=== PATIENT | female | born 2000 | race Caucasian/White ===

== ENCOUNTER 2021-02-24 21:17 | Emergency (ER) | payer OTHER, MEDICAID, SELFPAY ==
--- NOTE | ~2021-02-24 | CT_ITS ---
EXAMINATION: CT HEAD WITHOUT CONTRAST CLINICAL INFORMATION: Head injury at work. No loss of consciousness. COMPARISON: CT head dated from 03/23/2017. TECHNIQUE: Contiguous axial imaging was performed from the skull base to vertex without intravenous administration of contrast. This CT examination was performed using dose optimization techniques as appropriate, variously including the following: *Automated exposure control *Adjustment of mA and/or kV according to patient size (this includes techniques or standardized protocols for targeted exams where dose is matched to indication/reason for exam; i.e. extremities or head) *Use of iterative reconstruction technique DLP: 656 mGy-cm FINDINGS: There is no evidence of acute intracranial hemorrhage or edematous territorial infarction. There is no abnormal attenuation within the brain parenchyma. [place]-white matter differentiation is preserved. The ventricles are normal in size and configuration. No evidence for obstructive hydrocephalus. No abnormal mass effect or midline shift. No extra-axial fluid collections. Subtle soft tissue thickening in the right frontal skull, possibly the site of injury. No acute osseous abnormalities. Mild mucosal thickening of the paranasal sinuses. The mastoids are clear. CT/CT head/brain wo con IMPRESSION: No evidence of acute intracranial hemorrhage or edematous territorial infarction.
[2021-02-24 21:57] VITALS: BP 145/96; PULSE 77; RESP 16; TEMP 36.8; O2SAT 98; BMI 32.9
--- NOTE | 2021-02-24 22:38 | ED.HEATRA ---
HPI - Head Injury General Chief complaint: Head Injury Stated complaint: work inj Time Seen by Provider: 02/24/21 22:20 Source: patient Mode of arrival: ambulatory Limitations: no limitations History of Present Illness HPI Narrative: 20-year-old female presenting to the ED with work related injury where she was at work and she pulled the lever down and accidentally injured her head. She reports that since then she has been having intermittent headaches with associated intermittent dizziness, blurry vision and nausea. She reports that the lever is not under pressure its a manual control lever. She denies any other symptoms complaints or concerns at this time. Patient denies being on blood thinner's. MD Complaint: head injury Onset (ago): hour(s) (Prior to arrival) Mechanism of Injury: work related injury Place: work Loss of Consciousness: no Location of injury: frontal Severity: mild Quality: aching Radiation: none Other Injuries: none Associated symptoms: vision changes (Blurry vision), nausea and other (Dizziness and intermittent headaches) Related Data Previous Rx's Medication Instructions Recorded acetaminophen 500 mg tablet 1,000 mg PO QID PRN #14 tab 02/24/21 (Tylenol Extra Strength) ondansetron HCl 4 mg tablet 4 mg PO Q8H PRN #14 tab 02/24/21 (Zofran) Allergies Allergy/AdvReac Type Severity Reaction Status Date / Time epinephrine [EPINEPHRINE] Allergy Unknown SEIZURES Verified 02/24/21 21:56 morphine [MORPHINE] Allergy Unknown ANAPHYLAXIS Verified 02/24/21 21:56 Review of Systems Review of Systems: Constitutional : No Weight loss, No Fever, No Chills, No Night Sweats, No Fatigue, No Malaise ENT/Mouth : No Hearing loss, No Ear Pain, No Nasal Congestion, No Sinus Pain, No Hoarseness, No sore throat, No Rhinorrhea, No Swallowing Difficulty Eyes: No Eye Pain, No Swelling, No Redness, No Foreign Body, No Discharge, No Vision Changes Cardiovascular : No Chest Pain, No SOB, No Dyspnea on Exertion, No Orthopnea, No Edema, No Palpitations Respiratory : No Cough, No Sputum, No Wheezing, No Smoke Exposure, No Dyspnea Gastrointestinal : No Nausea, No Vomiting, No Diarrhea, No Constipation, No abdominal Pain, No Hematochezia, No Melena Genitourinary : no irregular bleeding, No Dysuria, No Urinary Frequency, No Hematuria, No Urinary Incontinence, No Urgency, No Flank Pain, No Urinary Flow Changes, No Hesitancy Musculoskeletal : No joint pain, No Myalgias, No Joint Swelling Skin : No Skin Lesions, No rash Neuro : + Head injury, + intermittent headaches/dizziness, No Weakness, No Numbness, No Paresthesias, No Loss of Consciousness Psych : No Anxiety/Panic, No Depression, No SI/HI/AH/VH, No Social Issues, Heme/Lymph: No Bruising, No Bleeding,No Lymphadenopathy Endocrine : No Polyuria, No Polydipsia, No Temperature Intolerance Yes all other systems are reviewed and are negative [facility] Past Medical History Attestation statement: The following information was validated with the patient. Medical History Diabetes Social History Social History Advance Directives: No Physical Exam Vital Signs: Vital Signs: Last Vital Signs Temp 98.2 F 02/24/21 21:57 Pulse 77 02/24/21 21:57 Resp 16 02/24/21 21:57 BP 145/96 H 02/24/21 21:57 Pulse Ox 98 02/24/21 21:57 Body Mass Index 32.9 Vital signs have been reviewed as normal and appeared to be correct. Blood pressure hypertensive 145/96. Heart rate normal. Respiration rate normal. Temperature normal. Oxygen saturation normal. Appearance: Alert. Oriented X3. No acute distress. Head: Patient mild soft tissue swelling and tenderness all patient to right forehead. Otherwise the rest of the external exam is within normal limits. Able to rotate head bilaterally. No Murillo signs or raccoon eyes noted. Eyes: PERRLA. EOMI. No nystagmus noted. Conjunctiva and sclera normal. Eyelids normal. Corneal reflex normal. ENT: Hearing normal. Pharynx normal. Uvula midline. tongue midline. Moist mucous membranes. Neck: Normal inspection. Neck supple. FROM. No adenopathy. Thyroid Normal. No meningeal signs. No neck mass noted. CVS: Normal heart rate and rhythm. Heart sound normal. No murmurs noted. Pulses normal throughout. Respiratory: No respiratory distress. Painless inspiration. Breath sounds normal. No wheezes/rales/rhonchi noted. Chest nontender. No accessory muscle usage noted or decreased air movement noted. Back: Full range of motion noted. Skin: Skin warm and dry. Normal skin color. Normal skin turgor. No rashes/lesions/lacerations noted. Extremities: Extremities exhibit normal range of motion. Extremities nontender. Able to shrug shoulders bilaterally and keep up against resistance. Neuro: Oriented X 3. No motor deficit. No sensory deficit. Reflexes normal. Moving all extremities. No focal motor deficits. Cranial nerves II-XI intact bilaterally. Facial strength normal. Normal cognition. Speech normal. Gait normal. Strength 5/5 throughout. Muscle tone normal throughout. Course Course Course Narrative: 20-year-old female presenting to the ED with work related injury where she was at work and she pulled the lever down and accidentally injured her head. She reports that since then she has been having intermittent headaches with associated intermittent dizziness, blurry vision and nausea. She reports that the lever is not under pressure its a manual control lever. She denies any other symptoms complaints or concerns at this time. Patient denies being on blood thinner's. Will obtain a CT scan of brain if negative will DC home with symptomatic treatment instructions return if any new or worsening symptoms to follow up with primary care provider. Patient understands agrees with this plan. MDM - Head Injury Medical Records Attestation: I reviewed the patient's medical records. Imaging Data CT scan of brain without contrast: Attestation: I personally reviewed and interpreted this imaging study as follows: Radiologist's impression: FINDINGS: There is no evidence of acute intracranial hemorrhage or edematous territorial infarction. There is no abnormal attenuation within the brain parenchyma. [place]-white matter differentiation is preserved. The ventricles are normal in size and configuration. No evidence for obstructive hydrocephalus. No abnormal mass effect or midline shift. No extra-axial fluid collections. Subtle soft tissue thickening in the right frontal skull, possibly the site of injury. No acute osseous abnormalities. Mild mucosal thickening of the paranasal sinuses. The mastoids are clear. ? CT/CT head/brain wo con IMPRESSION: No evidence of acute intracranial hemorrhage or edematous territorial infarction. ? Discharge Plan Discharge Clinical Impression: Closed head injury, Concussion without loss of consciousness, Work related injury Patient Disposition: Home, Self-Care Instructions: Concussion (ED), Head Injury (ED), Return to Work Instructions (ED) Prescriptions: New ondansetron HCl [Zofran] 4 mg tablet 4 mg PO Q8H PRN (Reason: nausea and vomiting) Qty: 14 RF: 0 acetaminophen [Tylenol Extra Strength] 500 mg tablet 1,000 mg PO QID PRN (Reason: fever or pain) Qty: 14 RF: 0 Referrals: [facility] [Provider Group] - 2 days (for your job ) Stand Alone Forms: Work/School Release Print Language: Yakut
[2021-02-24 23:08] VITALS: BP 155/90; PULSE 58; RESP 16
== END 2021-02-24 23:21 | disposition home or self-care (01) ==
PROVIDERS: Emergency Provider Internal Medicine
DX: S06.0X0A Concussion without loss of consciousness, initial encounter (principal); W20.8XXA Other cause of strike by thrown, projected or falling object, initial encounter; Y93.9 Activity, unspecified; Y92.9 Unspecified place or not applicable; Y99.0 Civilian activity done for income or pay
CPT/HCPCS: 70450; 99284